=== PATIENT | male | born 1965 | race Caucasian/White ===

== ENCOUNTER 2020-04-16 13:46 | Emergency (ER) | payer OTHER, MEDICAID, SELFPAY ==
[2020-04-16] VITALS (7 sets, daily range): BP systolic 108–155; BP diastolic 64–93; PULSE 64–73; RESP 12–18; TEMP 37.1; O2SAT 96–97
[2020-04-16 14:34] LABS: Add Manual Diff / Slide Review NO; Basophils Absolute Auto 100 /uL (0-100); Basophils Percent Auto 1.1 % (0-2); Eosinophils Absolute Auto 100 /uL (0-450); Eosinophils Percent Auto 1.3 % (2-4); Hematocrit 42.9 % (41-53); Hemoglobin 14.5 g/dL (13.5-17.5); Lymphocytes Absolute Auto 800 /uL (1100-4500); Lymphocytes Percent Auto 15.2 % (25-40); Mean Corpuscular HGB Conc 33.8 % (30-36); Mean Corpuscular Hemoglobin 32.3 PG (26-34); Mean Corpuscular Volume 95.5 fL (80-100); Monocytes Absolute Auto 300 /uL (0-900); Neutrophils Absolute Auto 4200 /uL (1500-7000); Neutrophils Percent Auto 76.4 % (50-75); Platelet Count 318 X10^3/uL (150-400); Red Cell Distribution Width 13.5 % (11.6-14.8); White Blood Cell Count 5.4 X10^3/uL (4.5-11.0)
[2020-04-16 14:38] LABS: PTT Partial Thromboplastin Tim 39 SECONDS (26.4-36.2)
[2020-04-16 14:43] LABS: Alanine Aminotransferase 20 IU/L (<50); Albumin 4.8 g/dL (3.5-5.0); Albumin Globulin Ratio 1.8 (1.0-2.8); Alkaline Phosphatase 74 U/L (38-126); Aspartate Aminotransferase 26 IU/L (17-59); BUN Creatinine Ratio 18.5 (6-22); Bilirubin Total 0.4 mg/dL (0.2-1.3); Blood Urea Nitrogen 10 mg/dL (9-20); Calcium 9.8 mg/dL (8.4-10.2); Carbon Dioxide 33 mmol/L (22-32); Chloride 102 mmol/L (98-107); Estimated Glomerular Filt Rate > 60.0 mL/min (>60); Globulin 2.6 g/dL (1.7-4.1); Glucose 96 mg/dL (70-100); HEMOLYSIS < 15 (0-50); Lipase 85 U/L (23-300); Potassium 4.2 mmol/L (3.4-5.1); Sodium 140 mmol/L (137-145); Total Protein 7.4 g/dL (6.3-8.2)
--- NOTE | 2020-04-16 14:46 | ED_ITS ---
HPI - Abdominal Pain General Chief Complaint: Abdominal Pain Stated Complaint: Twisted Intestine, Sent By GI Dr Time Seen by Provider: 04/16/20 14:13 Source: patient Mode of arrival: Ambulatory Limitations: no limitations History of Present Illness HPI narrative: Patient is a 55-year-old male history of Parkinson's presenting at the request of his GI doctor for possible bowel obstruction. He apparently had an ultrasound which showed possible twisting of the intestine. He has had of abdominal distension on for years it does not seem to be any worse. He denies any vomiting. He is passing gas but has not yet had a bowel movement today he is usually pretty regular. He denies any fever or chills. They tried to get a CT scan for a better look at his abdomen but insurance denied. He has also noticed some left flank pain. MD complaint: abdominal pain Pain Consistency: constant Location: diffuse Severity: mild Quality: fullness Radiation: none Related Data Home Medications Medication Instructions Recorded Confirmed Cbd Oil 04/16/20 buspirone 10 mg PO BID 04/16/20 04/16/20 dicyclomine 20 mg PO TID PRN 04/16/20 04/16/20 Allergies Allergy/AdvReac Type Severity Reaction Status Date / Time Sulfa (Sulfonamide Allergy Verified 04/16/20 13:49 Antibiotics) Review of Systems Review of Systems Narrative: GENERAL: Denies chills, fatigue, malaise, fever, sweats, travel HEENT: Denies sinus pain, ear pain, sore throat, difficulty swallowing, neck pain RESPIRATORY: Denies dyspnea, cough, wheezing, hemoptysis, sputum. CARDIOVASCULAR: Denies chest pain, palpitations, orthopnea, edema GASTROINTESTINAL: See HPI : Denies dysuria, frequency, incontinence, hematuria, urinary retention, flank pain. MUSCULOSKELETAL: Denies weakness, joint pain, or bony pain SKIN: No rash, no erythema, no pruritus NEUROLOGIC: Denies weakness, dizziness, headache, numbness, change in speech, confusion PSYCHIATRIC: No concerning psychosocial issues. 12 point review of systems is negative except for those stated above and HPI Patient History Medical History Parkinsons (Acute) Exam Initial Vital Signs Initial Vital Signs: Vital Signs Temperature 98.7 F 04/16/20 13:49 Pulse Rate 73 04/16/20 13:49 Respiratory Rate 18 04/16/20 13:49 Blood Pressure 119/73 04/16/20 13:49 Pulse Oximetry 97 04/16/20 13:49 GENERAL: Alert thin male parkinsonian features and in no acute distress. HEENT: Head atraumatic,EOMI, pupils reactive CARDIOVASCULAR: Regular rate and rhythm without murmurs, rubs or gallops. RESPIRATORY: Breath sounds equal bilaterally, no wheezes rales or rhonchi. ABDOMEN: Soft, nontender. Normoactive bowel sounds all 4 quadrants. No guarding or rebound. EXTREMITIES: Normal range of motion, no clubbing or edema. Neurovascularly intact NEUROLOGICAL: Alert and oriented x4.Normal gait and speech. Cranial nerves II through XII grossly intact. Resting tremor SKIN: Warm, dry, no laceration, no petechiae, no rashes or lesions. Course Orders Ordered: ED Orders 04/16/20 14:00 Complete Blood Count AUTO DIFF Stat Comprehensive Metabolic Panel Stat Lipase Stat Partial Thromboplastin Time Stat Prothrombin Time INR Stat 04/16/20 14:26 EKG-12 Lead Stat 04/16/20 15:30 CT abdomen pelvis w con Stat Vital Signs Vital signs: Vital Signs - 8 hr 04/16/20 13:49 04/16/20 14:00 04/16/20 14:30 Temperature 98.7 F Pulse Rate 73 64 Respiratory Rate 18 Blood Pressure 119/73 155/93 H 124/70 Pulse Oximetry 97 97 04/16/20 15:00 04/16/20 15:30 04/16/20 16:00 Temperature Pulse Rate 73 66 73 Respiratory Rate 12 13 18 Blood Pressure 122/71 108/64 122/75 Pulse Oximetry 97 97 96 04/16/20 16:30 Temperature Pulse Rate 67 Respiratory Rate 18 Blood Pressure 128/80 Pulse Oximetry 97 MDM - Abdominal Pain Lab Data Attestation: I reviewed the patient's lab results. Result diagrams: 04/16/20 14:00 04/16/20 14:00 Labs: Lab Results 04/16/20 04/16/20 04/16/20 Range/Units 14:00 14:00 14:00 WBC 5.4 (4.5-11.0) X10^3/uL RBC 4.50 (4.5-5.9) X10^6/uL Hgb 14.5 (13.5-17.5) g/dL Hct 42.9 (41-53) % MCV 95.5 (80-100) fL MCH 32.3 (26-34) PG MCHC 33.8 (30-36) % RDW 13.5 (11.6-14.8) % Plt Count 318 (150-400) X10^3/uL Neut % (Auto) 76.4 H (50-75) % Lymph % (Auto) 15.2 L (25-40) % [place] % (Auto) 6.0 (3-14) % Eos % (Auto) 1.3 L (2-4) % Baso % (Auto) 1.1 (0-2) % Neut # (Auto) 4200 (5745-8484) /uL Lymph # (Auto) 800 L (4736-5036) /uL [place] # (Auto) 300 (0-900) /uL Eos # (Auto) 100 (0-450) /uL Baso # (Auto) 100 (0-100) /uL PT 11.0 (10.1-12.7) SECONDS INR 1.0 (0.9-1.3) APTT 39 H (26.4-36.2) SECONDS Sodium 140 (137-145) mmol/L Potassium 4.2 (3.4-5.1) mmol/L Chloride 102 (98-107) mmol/L Carbon Dioxide 33 H (22-32) mmol/L BUN 10 (9-20) mg/dL Creatinine 0.54 L (0.66-1.25) mg/dL Estimated GFR > 60.0 (>60) mL/min BUN/Creatinine Ratio 18.5 (6-22) Glucose 96 (70-100) mg/dL Calcium 9.8 (8.4-10.2) mg/dL Total Bilirubin 0.4 (0.2-1.3) mg/dL AST 26 (17-59) IU/L ALT 20 (<50) IU/L Alkaline Phosphatase 74 (38-126) U/L Total Protein 7.4 (6.3-8.2) g/dL Albumin 4.8 (3.5-5.0) g/dL Globulin 2.6 (1.7-4.1) g/dL Albumin/Globulin Ratio 1.8 (1.0-2.8) Lipase 85 (23-300) U/L Point of care testing: Urine Dip Bedside Urine Glucose Negative Bedside Urine Bilirubin - Negative Bedside Urine Ketone - Negative Urine Specific [place] 1.015 Bedside Urine Occult Blood - Negative Bedside Urine pH 6.5 Bedside Urine Protein - Negative Bedside Urine Urobilinogen - Negative Bedside Urine Nitrite - Negative Bedside Urine Leukocytes - Negative Esterase Imaging Data CT scan - abdomen/pelvis: Radiologist's Impression: PROCEDURE: CT ABDOMEN PELVIS W CON INDICATIONS: Distension TECHNIQUE: After the administration of intravenous contrast, 5 mm thick sections acquired from the diaphragm to the symphysis. 5 mm coronal and sagittal reformats were acquired. For radiation dose reduction, the following was used: automated exposure control, adjustment of mA and/or kV according to patient size. COMPARISON: None. FINDINGS: Image quality: Excellent. ABDOMEN: Lung bases: Lung bases are clear except for 2 adjacent foci of mild patchy alveolar prominence just above the diaphragm dome at the left lower lobe.. Heart size is normal. Solid organs: Liver is normal in size and enhancement. Gallbladder appears normal. Biliary system is non dilated. Pancreas enhances normally. Spleen is normal in size and enhancement. No adrenal nodules. Kidneys demonstrate normal size and enhancement, without hydronephrosis. Note is made of a small nonobstructive calculus at the left mid kidney lateral collecting system, not associated with adjacent renal cortical inflammation. Peritoneum and bowel: Bowel loops demonstrate normal wall thickness and caliber. No free fluid or air. Moderate colonic obstipation. Nodes and vessels: No retroperitoneal or mesenteric adenopathy by size criteria. Aorta and inferior vena cava are normal in size. Miscellaneous: No ventral hernias. PELVIS: Genitourinary: Bladder wall thickness is normal. Miscellaneous: No inguinal hernias or adenopathy. Bones: No suspicious bony lesions. No vertebral body compression fractures. IMPRESSION: Incidental finding of a 2 x 3 mm calculus that is nonobstructive within the middle third collecting system of the left kidney laterally. Moderate colonic obstipation, but without evidence of visualized colonic obstruction. Incidental mode is made of 2 small foci of alveolar prominence just above the dome of the left diaphragm at the left lower lobe. The appearance is considered most likely a sequela of atelectasis. Dictated by: Jean-Paul Puentes M.D. on 04/16/2020 at 16:21 Approved by: Jean-Paul Puentes M.D. on 04/16/2020 at 16:23 MDM Narrative Medical decision making narrative: No sign of bowel obstruction blood work is within normal limits. He has stool softeners at home, still no BM in ED. abdomen remains soft he has no nausea or vomiting or signs or symptoms of bowel obstruction. Discharge Plan Departure Patient Disposition: Home Clinical Impression: Constipation Qualifiers: Constipation type: unspecified constipation type Qualified Code(s): K59.00 - Constipation, unspecified Discharge Date/Time: 04/16/20 17:17 Instructions: Constipation Activity Restrictions/Additional Instructions: *You have been diagnosed with no sign of bowel obstruction you do have some mild constipation *What to do: Increased water intake you may need a stool softener, please follow-up with your GI specialist *Continue to take medications as directed *Follow up with your primary care provider in 2-3 days *Return to ER if you should have increasing abdominal pain persistent vomiting or any new, worsening or concerning symptoms Prescriptions: No Action dicyclomine 20 mg Tablet 20 mg PO TID PRN (Reason: Abdominal Pain) RF: 0 buspirone 10 mg Tablet 10 mg PO BID RF: 0 Cbd Oil RF: 0
--- NOTE | 2020-04-16 15:30 | DI.CT.S_ITS ---
PROCEDURE: CT ABDOMEN PELVIS W CON INDICATIONS: Distension TECHNIQUE: After the administration of intravenous contrast, 5 mm thick sections acquired from the diaphragm to the symphysis. 5 mm coronal and sagittal reformats were acquired. For radiation dose reduction, the following was used: automated exposure control, adjustment of mA and/or kV according to patient size. COMPARISON: None. FINDINGS: Image quality: Excellent. ABDOMEN: Lung bases: Lung bases are clear except for 2 adjacent foci of mild patchy alveolar prominence just above the diaphragm dome at the left lower lobe.. Heart size is normal. Solid organs: Liver is normal in size and enhancement. Gallbladder appears normal. Biliary system is non dilated. Pancreas enhances normally. Spleen is normal in size and enhancement. No adrenal nodules. Kidneys demonstrate normal size and enhancement, without hydronephrosis. Note is made of a small nonobstructive calculus at the left mid kidney lateral collecting system, not associated with adjacent renal cortical inflammation. Peritoneum and bowel: Bowel loops demonstrate normal wall thickness and caliber. No free fluid or air. Moderate colonic obstipation. Nodes and vessels: No retroperitoneal or mesenteric adenopathy by size criteria. Aorta and inferior vena cava are normal in size. Miscellaneous: No ventral hernias. PELVIS: Genitourinary: Bladder wall thickness is normal. Miscellaneous: No inguinal hernias or adenopathy. Bones: No suspicious bony lesions. No vertebral body compression fractures. IMPRESSION: Incidental finding of a 2 x 3 mm calculus that is nonobstructive within the middle third collecting system of the left kidney laterally. Moderate colonic obstipation, but without evidence of visualized colonic obstruction. Incidental mode is made of 2 small foci of alveolar prominence just above the dome of the left diaphragm at the left lower lobe. The appearance is considered most likely a sequela of atelectasis. Dictated by: Jean-Paul Puentes M.D. on 04/16/2020 at 16:21 Approved by: Jean-Paul Puentes M.D. on 04/16/2020 at 16:23
== END 2020-04-16 17:17 | disposition home or self-care (01) ==
PROVIDERS: Emergency Provider Emergency Medicine; Referring Provider Physician Assistant
DX: K59.00 Constipation, unspecified (principal); G20 Parkinson's disease; R10.9 Unspecified abdominal pain
CPT/HCPCS: 36415; 74177; 80053; 81003; 83690; 85025; 85610; 85730; 93005; 93010; 99284; Q9967